=== PATIENT | female | born 1955 | race Caucasian/White ===

== ENCOUNTER → 2017-02-10 | Day surgery (SDC) | payer OTHER ==
[~2017-02-10] MED LIST: DIAZEPAM PO; IMITREX PO; NEURONTIN300 MG PO; PERCOCET 10/3251 TAB PO; PERCOCET 7.5-31 EACH PO; PERCOCET7.5 PO; PROZAC PO
--- NOTE | ~2017-02-10 | OR ---
Unit #: [id number] #: [id number] Patient: MARGIE VENEGAS [id number] [address] [address] [id number] O MR#: [id number] NAME: MARGIE VENEGAS. ROOM: Date of Procedure: 02/10/2017 Admission Date: 02/10/2017 Surgeon: Hank Vegas M.D. : 1955 Attending Physician: Hank Vegas M.D. Primary Care Physician: Madison Magana M.D. OPERATIVE REPORT PREOPERATIVE DIAGNOSES Back pain, radiculopathy, degenerative disk disease, spondylolisthesis. POSTOPERATIVE DIAGNOSES Back pain, radiculopathy, degenerative disk disease, spondylolisthesis. PROCEDURE PERFORMED Lumbar epidural steroid injection with intravenous sedation and fluoroscopic guidance for needle localization. INDICATIONS FOR PROCEDURE The patient is a 61-year-old female with worsening back and right greater than left lower extremity pain due to previously mentioned nonsurgical pathology. She was treated medically with p.r.n. epidural steroid injections. Last single injection was done in 04/2016, she did quite well with that. The pain is back in the same distribution. Based on history, pathology, symptomatology, and treatment options, we are going to proceed with a repeat injection today. DESCRIPTION OF PROCEDURE The patient was placed in a seated position. Standard monitors were applied. 2 mg of Versed were given for sedation and anxiolysis, which were adequate. Vital signs remained stable. Sterile prep and drape then of the lumbar area was performed. The skin then at the L4-L5 level was localized with 1% lidocaine. An 18-gauge Signdattead needle was then advanced via loss of resistance technique and fluoroscopic guidance in toward the epidural space. After confirming proper positioning with fluoroscopy and radiographic contrast, 80 mg of Depo-Medrol and 4 mL of 0.125% bupivacaine were deposited. The patient tolerated the procedure otherwise well and was discharged to the recovery room in stable condition. Dictated by... Cesar WuP/bol TD: 02/11/2017 02:24 JOB #: [id number] Unit #: [id number] #: [id number] Patient: MARGIE VENEGAS OPERATIVE REPORT Page 1 of 1 X Hank Vegas MD X PROCEDURE OPERATIVE NOTE
== END | disposition home or self-care (01) ==
LOC: CCSC 11:03
DX: M51.16 Intervertebral disc disorders with radiculopathy, lumbar region (principal); M43.16 Spondylolisthesis, lumbar region
CPT/HCPCS: J1040; J2250

== ENCOUNTER → 2017-05-03 | Day surgery (SDC) | payer OTHER ==
--- NOTE | ~2017-05-03 | OR ---
Unit #: [id number] #: [id number] Patient: MARGIE VENEGAS [id number] [address] [address] [id number] O MR#: [id number] NAME: MARGIE VENEGAS. ROOM: Date of Procedure: 05/03/2017 Admission Date: 05/03/2017 Surgeon: Hank Vegas M.D. : 1955 Attending Physician: Hank Vegas M.D. Primary Care Physician: Madison Magana M.D. OPERATIVE REPORT PREOPERATIVE DIAGNOSES Back pain, radiculopathy, degenerative disk disease, spondylolisthesis. POSTOPERATIVE DIAGNOSES Back pain, radiculopathy, degenerative disk disease, spondylolisthesis. PROCEDURE PERFORMED Lumbar epidural steroid injection with fluoroscopic guidance for needle localization. INDICATIONS FOR PROCEDURE The patient is a 62-year-old female with back and right greater than left lower extremity pain due to previously mentioned diagnosis. Last injection just done about 3 months ago. She did well until recently. Prior to that, she had done well for 6 to 7 months with a single injection. She strongly wants to avoid surgery and based on that she had done well for treatment in the past, we are going to proceed with a repeat injection today. DESCRIPTION OF PROCEDURE The patient was placed in a seated position. Standard monitors were applied. Sterile prep and drape of the lumbar area were performed. The skin then at the L4-L5 level was localized with 1% lidocaine. An 18-gauge Fingoorootead needle was then advanced via loss of resistance technique and fluoroscopic guidance in toward the epidural space. After confirming proper positioning with fluoroscopy and radiographic contrast, 80 mg of Depo-Medrol and 4 mL of preservative-free normal saline were deposited. The patient tolerated the procedure otherwise well and was discharged to the recovery room in stable condition. Dictated by... Hank Vegas M.D. LHP/bol TD: 05/03/2017 13:03 JOB #: [id number] Unit #: [id number] #: [id number] Patient: MARGIE VENEGAS OPERATIVE REPORT Page 1 of 1 X Hank Vegas MD X PROCEDURE OPERATIVE NOTE
== END | disposition home or self-care (01) ==
LOC: CCSC 10:20
DX: M51.16 Intervertebral disc disorders with radiculopathy, lumbar region (principal); M43.16 Spondylolisthesis, lumbar region; F41.9 Anxiety disorder, unspecified; F32.9 Major depressive disorder, single episode, unspecified; Z88.0 Allergy status to penicillin; Z79.899 Other long term (current) drug therapy
CPT/HCPCS: J1040; J2250